=== PATIENT | female | born 1995 | race Caucasian/White ===

== ENCOUNTER 2020-08-20 20:23 | Inpatient (IN) | payer BC, OTHER ==
[~2020-08-20 20:23] MED LIST: Bupivacaine 0.25% HCL 30 ML VIAL ONE; Bupivacaine HCl 0.25%/Epi 0.0005/PF 10 ML VIAL FS ONE
[2020-08-20 20:59] VITALS: BMI 28.5
[2020-08-20] MEDS ORDERED: Butorphanol Tartrate 1 MG/ML VIAL SLOW IVP PRN (21:05)
[2020-08-20] MEDS ORDERED: HYDROcodone/Acetaminophen 5/325 mg Tablet PO PRN ×2 (21:05)
[2020-08-20] MEDS ORDERED: Lidocaine 1% (PF) 30 ML VIAL SC PRN (21:05)
[2020-08-20] MEDS ORDERED: Promethazine HCl 25 MG/ML VIAL IM PRN ×2 (21:05→23:54)
[2020-08-20] MEDS ORDERED: hydrALAZINE 20 MG/ML VIAL SLOW IVP PRN ×2 (21:05→23:17)
[2020-08-20] MEDS ORDERED: NS / Oxytocin 40 units/1000ml 1,000 ML IV PRN (21:05)
[2020-08-20] MEDS ORDERED: Ondansetron PF 4 MG/2 ML Vial IVP PRN ×2 (21:05→23:54)
--- NOTE | 2020-08-20 21:20 | PDOC.BPN ---
- Brief Progress Note Patient seen at bedside. States that at last delivery had increased blood loss but no transfuion. At delivery we may give cytotec and hemabate if neded. I will not T&C at this time as no clear HX of PPH as far as I can gather. H&P Noted
[2020-08-20] MEDS ORDERED: Fentanyl 4 mcg/Bup 0.1% Cadd 100 ML ONE (21:35)
[2020-08-20 21:36] LABS: Hemoglobin 11.8 g/dL (12.0-16.0); Mean Corpuscular HGB CONC 33.7 g/dL (32.0-36.0); Mean Corpuscular Hemoglobin 32.5 pg (27.0-31.0); Mean Corpuscular Volume 96.4 fL (78.0-98.0); Mean Platelet Volume 8.1 fL (7.4-10.4); Platelet Count 212 thou/uL (130-400); RBC Distribution Width 11.5 % (11.5-14.5); Red Blood Cell (RBC) Count 3.64 mill/uL (4.20-5.40); White Blood Cell (WBC) Count 8.8 thou/uL (4.8-10.8)
--- NOTE | 2020-08-20 21:38 | HP ---
ADDENDUM Change blood pressure to 135/70 from 117/70. Job ID: [id number]
--- NOTE | 2020-08-20 21:58 | HP ---
TIME: 2109 hours. LOCATION: In Labor and Delivery, [facility] room #3. CHIEF COMPLAINT: Contractions at 38 weeks and [address] Villar. HISTORY OF PRESENT ILLNESS: This is a 24-year-old, 4, para 2, with previous vaginal deliveries, who is at 38 weeks and 5 days. Her due date is August 29. She states that she was seen yesterday in the office with Dr. Villar, who performed stripping of the membranes. She returns now with contractions, although she denies vaginal bleeding, leakage of fluid, or any decrease in movement. She has no other complaints. She states that her contractions are anywhere from every 3 to 5 minutes and has slowly been increasing over the past several hours. REVIEW OF SYSTEMS: GENERAL: No sick contacts. No fever. No chills. PULMONARY: No shortness of breath. CARDIOVASCULAR: No chest pain. EXTREMITIES: No unusual pain in the lower extremities or unusual asymmetric swelling. PAST OB HISTORY: She is a G4, P2, with vaginal deliveries. SURGICAL HISTORY: Rhinoplasty. PAST MEDICAL HISTORY: Negative. MEDICATIONS: vitamins. ALLERGIES: NONE. SOCIAL HISTORY: Negative for alcohol, tobacco, substance use PHYSICAL EXAMINATION: VITAL SIGNS: Her blood pressure is normal about 139/70. Vitals show a pulse of 90. She is afebrile. Respirations are 18 and unlabored. GENERAL: She is in no acute distress. ABDOMEN: Gravid and size consistent with date. Estimated weight is anywhere about 6-1/2 to 7 pounds. PELVIS: Cervix is 5 cm dilated, 75% effaced, -1 station. No evidence of ruptured membranes. Baby is cephalic. External monitor: heart tones are reactive in the 130s to 140s. Contractions are every 1 to 3 minutes on tocodynamometer. The heart tracing is reactive/category I. ASSESSMENT: This is a G4, P2, at 38 weeks and 5 days (early term), who is 5 cm with regular contractions. Because she is having regular contractions and is close to the active phase of labor (6 cm), I do not feel comfortable sending her home. So, we will keep her/admit her as a direct admission for Dr. Villar. She is GBS negative. PLAN: 1. Pain control. 2. Labor augmentation if necessary as this is not elective induction, but this would be augmenting spontaneous onset of labor. 3. Anticipate labor progress. 4. No evidence of maternal or issue at this time. Job ID: [id number] MTDD
[2020-08-20] MEDS: Lactated Ringer's 1,000 ML IV SCH ×2 (22:00→22:44)
[2020-08-20] MEDS ORDERED: NS w/ Oxytocin 30 units 500 ML ONE (22:11)
[2020-08-20] MEDS ORDERED: Misoprostol 200 MCG TAB ONE ×3 (22:18)
[2020-08-20] MEDS ORDERED: Methylergonovine 0.2 MG/ML VIAL ONE (22:18)
[2020-08-20 23:05] LABS: Syphilis Antibody Nonreactive (Nonreactive); Syphilis Antibody Index 0.06 S/CO (<1.00 Non-Reactive)
[2020-08-20] MEDS: Misoprostol 200 MCG TAB ONE ×2 (23:10→23:11)
[2020-08-20] MEDS ORDERED: Milk Of Magnesia 30 ML UDCUP PO PRN (23:17)
[2020-08-20] MEDS ORDERED: Acetaminophen/Codeine 30-300mg Tablet PO PRN ×2 (23:17)
[2020-08-20] MEDS ORDERED: Bisacodyl 10 MG SUPP PR PRN (23:17)
[2020-08-20] MEDS ORDERED: Benzocaine-Menthol 82.5 ML CAN TOP PRN (23:17)
--- NOTE | 2020-08-20 23:17 | PDOC.OPDEL ---
OB Operative/Delivery Note Delivery Dr/Surgeon: Dick (For [facility]) Assist: NOne Pre-Delivery Diagnosis: active labor Procedure/Post Delivery Dx: spontaneous vaginal delivery (at 2306, no NC. Vigorous Female.) Weeks gestation: 38 Anesthesia: epidural - Additional Findings/Plan Placenta delivered: spontaneous (Seo at 2308, intact with 3vc. No Mec staining.) Repaired Obstetrical Laceration: none Estimated blood loss: 200 at max Compilations/Other Findings: No complications. FINDINGS: No NC Nursery nurse in room Apgars verbal 8 and 9 (not final) No lacs AROM done just prior to delivery: copious clear fluid Post delivery plan: routine recovery
[2020-08-20] MEDS ORDERED: NS / Oxytocin 40 units/1000ml 1,000 ML IV SCH (23:30)
[2020-08-20 23:37] LABS: HBSAg Index 0.16 S/CO (0-0.99); HIV (1/2) Antibody/Antigen Non-Reactive (NonReactive); HIV 1/2 INDEX 0.12 S/CO (<1.00); Hep B Surf Ag Non-Reactive S/CO (NonReactive)
[2020-08-20] MEDS ORDERED: Communication Order-Pharmacy FS SCH (23:45)
[2020-08-20] MEDS ORDERED: Fentanyl 4 mcg/Bupivacaine 0.1% Cassette 100 ML EPIDURAL SCH (23:45)
[2020-08-20] MEDS ORDERED: ePHEDrine 50 MG/ML VIAL SLOW IVP PRN (23:54)
[2020-08-20] MEDS ORDERED: Naloxone HCl 0.4 mg/ml Vial IVP PRN ×2 (23:54)
[2020-08-20] MEDS ORDERED: diphenhydrAMINE 50 MG/ML VIAL IVP PRN (23:54)
[2020-08-20] MEDS ORDERED: Lactated Ringer's 500 ML IV PRN (23:54)
[2020-08-20] MEDS ORDERED: Acetaminophen 325 MG TAB PO PRN (23:54)
[2020-08-21] MEDS ORDERED: NS w/ Oxytocin 30 units 500 ML ONE (00:55)
[2020-08-21] MEDS: Ibuprofen 800 MG TAB PO PRN ×2 (01:02→08:06)
[2020-08-21] MEDS ORDERED: NS w/ Oxytocin 30 units 500 ML IVPB SCH (02:45)
[2020-08-21 05:21] LABS: SARS-CoV-2 MS2 Positive; SARS-CoV-2 N Gene Negative; SARS-CoV-2 S Gene Negative; SARS-CoV-2 by NAA Not Detected (NotDetected); SARS-CoV-2 orf1ab Negative
[2020-08-21 06:41] LABS: Hemoglobin 11.4 g/dL (12.0-16.0)
[2020-08-21] MEDS: Ibuprofen 800 MG TAB PO SCH ×3 (08:10→21:07)
[2020-08-21] MEDS ORDERED: Measles/Mumps/Rubella 10 MCG/0.5 ML VIAL SC ONE (09:00)
[2020-08-21] MEDS ORDERED: Adacel (T-DAP) 0.5 ML SYRINGE IM ONE (09:00)
[2020-08-21] MEDS ORDERED: Varicella virus, LIVE 0.5 ML VIAL SC ONE (09:00)
[2020-08-21] MEDS: Ferrous Sulfate 325 MG TAB PO SCH (18:29)
[2020-08-21] MEDS: Docusate Calcium (SURFAK) 240 MG CAP PO SCH (21:08)
[2020-08-22] MEDS: Ibuprofen 800 MG TAB PO SCH (05:18)
[2020-08-22] MEDS: Lactated Ringer's 1,000 ML IV SCH ×3 (05:46→07:49)
--- NOTE | 2020-08-22 06:54 | PDOC.PP ---
Post Progress Note Post Day #: 2 Subjective: 24yo s/p @ 38.5wk now PPD #2. Doing well. Voiding without difficulty. Tolerating PO well. Pain well-controlled. Lochia minimal. Ambulating. No BM yet. Eager for discharge home. Denies HUNTER, vision changes, n/v, SOB CP. Does endorse mild feet swelling noticed over past day. PO intake tolerated: yes Flatus: yes Ambulation: yes Vital Signs (12 hours) Temp Pulse Resp BP Pulse Ox 08/21/20 20:45 98.8 F 86 18 134/74 99 Weight Weight 80.286 kg - Physical Examination General: NAD (resting comfortably) Cardiovascular: RRR Respiratory: clear to auscultation bilaterally, non-labored breathing Abdominal: + bowel sounds, no distention, appropriately TTP Fundus firm & at: below umbilicus Extremities: negative homans (B) (no edema noted on exam) Neurological: no gross focal deficits Psychiatric: A&Ox3, normal affect Result Diagrams: 08/21/20 06:29 Additional Labs: Post Labs Hep Bs Antigen Non-Reactive S/CO (NonReactive) 08/20/20 21:24 Blood Type O NEGATIVE 08/20/20 22:36 (1) Normal vaginal delivery Code(s): O80 - ENCOUNTER FOR FULL-TERM UNCOMPLICATED DELIVERY Status: Acute - Assessment/Plan 24yo s/p @ 38.5wk now PPD #2. #S/p , PPD#2 - 3620 on 08/20/20 - EBL 200 - Tolerating PO well, lochia minimal, pain well-controlled - Repeat BP this AM 106/55. No evidence of edema on exam, PreE precautions given - Routine PP care #RH negative - Baby A+ - s/p Rhogam Dispo: Discharge today. Routine care and precautions given. All questions answered.
[2020-08-22] MEDS: Docusate Calcium (SURFAK) 240 MG CAP PO SCH ×2 (07:50→09:49)
[2020-08-22] MEDS: Ferrous Sulfate 325 MG TAB PO SCH (07:51)
[2020-08-22 08:59] VITALS: BP 111/62; TEMP 97.9
== END 2020-08-22 14:00 | disposition home or self-care (01) | DRG 807 ==
LOC: L&D/OP 20:23 → L&D 21:05 → 3SW 08-21 17:03
PROVIDERS: ADMIT Obstetrics & Gynecology; ATTEND Obstetrics & Gynecology
PROC: 10E0XZZ Delivery of Products of Conception, External Approach (ICD-10-PCS; principal; 2020-08-20)
PROC: 10907ZC Drainage of Amniotic Fluid, Therapeutic from Products of Conception, Via Natural or Artificial Opening (ICD-10-PCS; 2020-08-20)
DX: O36.63X0 Maternal care for excessive fetal growth, third trimester, not applicable or unspecified (principal); Z37.0 Single live birth; Z20.822 Contact with and (suspected) exposure to COVID-19; Z3A.38 38 weeks gestation of pregnancy
CPT/HCPCS: 36415; 85014; 85018; 85027; 85461; 86780; 86850; 86900; 86901; 87340; 87389; 87635; 90384; 96372; 99285; J2210; J2590; S0020; U0003